=== PATIENT | male | born 1980 | race Caucasian/White ===

== ENCOUNTER 2024-01-24 16:18 | Emergency (ER) | payer OTHER ==
[~2024-01-24] VITALS: Ht 182.9 cm; Wt 113.0 kg
[~2024-01-24 16:18] MED LIST: VISTARIL25 MG PO
[2024-01-24] MEDS ORDERED: ACETAMINOPHEN 500 MG TAB PO ONE (18:00)
[2024-01-24] MEDS ORDERED: IBUPROFEN 600 MG TAB PO ONE (18:00)
[2024-01-24 18:48] VITALS: BP 114/72
== END 2024-01-24 18:48 | disposition home or self-care (01) ==
LOC: ED 16:18
DX: T25.022A Burn of unspecified degree of left foot, initial encounter (principal); F17.200 Nicotine dependence, unspecified, uncomplicated; X12.XXXA Contact with other hot fluids, initial encounter
CPT/HCPCS: 99283; A9270

== ENCOUNTER 2024-05-26 12:07 | Emergency (ER) | payer OTHER ==
[~2024-05-26] VITALS: Ht 182.9 cm; Wt 121.1 kg
[2024-05-26] MEDS ORDERED: DIPHTH,PERTUSS(ACELL),TET VAC 0.5 ML SYRINGE IM ONE (12:30)
[2024-05-26] MEDS ORDERED: LIDODERM1 EACH TOP (13:09)
[2024-05-26 13:13] VITALS: BP 120/86
== END 2024-05-26 13:16 | disposition home or self-care (01) ==
LOC: ED 12:07
DX: S61.213A Laceration without foreign body of left middle finger without damage to nail, initial encounter (principal); W26.0XXA Contact with knife, initial encounter; Y93.G1 Activity, food preparation and clean up; F17.200 Nicotine dependence, unspecified, uncomplicated
CPT/HCPCS: 90471; 90715; 99282-25